=== PATIENT | male | born 1990 | race Caucasian/White ===

== ENCOUNTER 2016-07-02 09:22 | Outpatient (CLI) | payer OTHER | END 2016-07-02 09:23 | disposition home or self-care (01) | DX: R19.8 Other specified symptoms and signs involving the digestive system and abdomen (principal) ==

== ENCOUNTER 2016-07-10 15:40 | Outpatient (CLI) | payer OTHER | END 2016-07-10 15:41 | disposition home or self-care (01) | DX: R19.8 Other specified symptoms and signs involving the digestive system and abdomen (principal); B19.9 Unspecified viral hepatitis without hepatic coma ==

== ENCOUNTER 2016-09-02 08:01 | Outpatient (CLI) | payer OTHER | END 2016-09-02 08:02 | disposition home or self-care (01) | DX: B19.20 Unspecified viral hepatitis C without hepatic coma (principal) ==

== ENCOUNTER 2016-09-03 07:59 | Outpatient (CLI) | payer OTHER | END 2016-09-03 08:00 | disposition home or self-care (01) | DX: B19.20 Unspecified viral hepatitis C without hepatic coma (principal) ==

== ENCOUNTER 2016-10-08 15:02 | Outpatient (CLI) | payer OTHER | END 2016-10-08 15:03 | disposition home or self-care (01) | DX: B18.2 Chronic viral hepatitis C (principal) ==

== ENCOUNTER 2016-11-05 15:04 | Outpatient (CLI) | payer OTHER | END 2016-11-05 15:05 | disposition home or self-care (01) | DX: B18.2 Chronic viral hepatitis C (principal) ==

== ENCOUNTER 2016-12-03 15:16 | Outpatient (CLI) | payer OTHER ==
[2016-12-03 18:37] LABS: BILIRUBIN,TOTAL 1.1 mg/dL (0.2-1.0); CALCIUM 9.5 mg/dL (8.5-10.3); CREATININE 1.1 mg/dL (0.6-1.2); POTASSIUM 3.4 mmol/L (3.5-5.0); TOTAL PROTEIN 7.1 g/dL (6.7-8.2)
[2016-12-03 19:07] LABS: BASOPHILS % (AUTO) 0.7 %; EOSINOPHILS % (AUTO) 0.7 %; HCT - HEMATOCRIT 39.3 % (42.0-52.0); HGB - HEMOGLOBIN 13.6 g/dL (14.0-18.0); LYMPHOCYTES # (AUTO) 1.8 10^3/uL (1.5-3.5); LYMPHOCYTES % (AUTO) 32.7 %; MEAN CORPUSCULAR HEMOGLOBIN 30.6 pg (27.0-31.0); MEAN CORPUSCULAR HGB CONC 34.6 g/dL (32.0-36.0); MEAN CORPUSCULAR VOLUME 88.5 fL (80.0-94.0); MEAN PLATELET VOLUME 8.9 fL (7.4-11.4); MONOCYTES # (AUTO) 0.4 10^3/uL (0.0-1.0); MONOCYTES % (AUTO) 6.5 %; NEUTROPHILS # (AUTO) 3.3 10^3/uL (1.5-6.6); NEUTROPHILS % (AUTO) 59.4 %; NUCLEATED RED BLOOD CELLS AUTO 0.2 /100WBC; RED BLOOD COUNT 4.44 10^6/uL (4.70-6.10); RED CELL DISTRIBUTION WIDTH 12.7 % (12.0-15.0); UNCORRECTED WHITE BLOOD COUNT 5.5 x10^3/uL; WHITE BLOOD COUNT 5.5 x10^3/uL (4.8-10.8)
== END 2016-12-03 15:17 | disposition home or self-care (01) ==
LOC: LAB.F 15:16
PROVIDERS: ATTEND Internal Medicine Gastroenterology
DX: B18.2 Chronic viral hepatitis C (principal)
CPT/HCPCS: 36415; 80053; 85025; 87522

== ENCOUNTER 2017-02-04 20:04 | Emergency (ER) | payer OTHER ==
[2017-02-04 20:10] VITALS: BP 151/92
[2017-02-04] MEDS ORDERED: HYDROcod/ACETAM 5/325 MG TABLET PO STA (20:16)
[2017-02-04] MEDS ORDERED: IBUPROFEN 800 MG TABLET PO STA (20:17)
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
[2017-02-04] MEDS ORDERED: HYDROcod/ACETAM 5/325 MG TABLET ONE (20:28)
[2017-02-04] MEDS ORDERED: IBUPROFEN 800 MG TABLET PO ONE (20:28)
[2017-02-04] MEDS ORDERED: HYDROcod/ACET 5/325 Prepack 6 PO STA (20:55)
[2017-02-04] MEDS ORDERED: HYDROcod/ACET 5/325 Prepack 6 PO ONE (21:06)
--- NOTE | 2017-02-04 21:23 | XRAY Preliminary Report ---
Exam: XR Clavicle LT IMPRESSION: Long oblique clavicle fracture. [facility] SITE ID: [id number]
--- NOTE | 2017-02-04 21:24 | XRAY Preliminary Report ---
Exam: XR Ribs w/PA Chest LT IMPRESSION: Left clavicle fracture. Otherwise negative. [facility] SITE ID: [id number]
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
== END 2017-02-04 21:30 | disposition home or self-care (01) ==
LOC: ED 20:04
DX: S42.022A Displaced fracture of shaft of left clavicle, initial encounter for closed fracture (principal); V18.4XXA Pedal cycle driver injured in noncollision transport accident in traffic accident, initial encounter; Y93.55 Activity, bike riding; R03.0 Elevated blood-pressure reading, without diagnosis of hypertension
CPT/HCPCS: 71101; 73000; 99283; 99284; A9270

== ENCOUNTER 2017-03-11 12:32 | Outpatient (CLI) | payer OTHER | END 2017-03-11 12:33 | disposition home or self-care (01) | LOC: LAB.F 12:32 | PROVIDERS: ATTEND Internal Medicine Gastroenterology | DX: B19.20 Unspecified viral hepatitis C without hepatic coma (principal) | CPT/HCPCS: 36415; 87522 ==

== ENCOUNTER 2021-02-23 08:00 | Outpatient (CLI) | payer BC, OTHER | END 2021-02-23 23:59 | disposition home or self-care (01) | LOC: LAB.S 08:00 | PROVIDERS: ATTEND Physician Assistant Medical | DX: R51.9 Headache, unspecified (principal); R50.9 Fever, unspecified; Z20.822 Contact with and (suspected) exposure to COVID-19 ==

== ENCOUNTER 2021-07-04 08:00 | Outpatient (CLI) | payer BC | END 2021-07-04 23:59 | LOC: LAB.S 08:00 | PROVIDERS: ATTEND Registered Nurse | DX: U07.1 COVID-19 (principal) | CPT/HCPCS: 87070; 87275; 87276 ==